=== PATIENT | male | born 1950 | race Caucasian/White ===

== ENCOUNTER 2018-07-16 13:20 | Emergency (ER) | payer MEDICARE, OTHER ==
[~2018-07-16] VITALS: Ht 182.8 cm; Wt 90.7 kg
[~2018-07-16 13:20] MED LIST: ALLEGRA180 MG; PHENERGAN W/DM120 ML PO; PREDNISONE20 MG PO; SINGULAIR10 MG; VIBRAMYCIN100 MG PO
[2018-07-16] MEDS ORDERED: PREDNISONE50 MG PO (14:52)
[2018-07-16] MEDS ORDERED: AVPAK AZITHROM250 MG PO (14:52)
[2018-07-16] MEDS ORDERED: ROBITUSSIN DM 101 OZ PO (14:52)
== END 2018-07-16 15:17 | disposition home or self-care (01) ==
LOC: ED 13:20
DX: J20.9 Acute bronchitis, unspecified (principal); I10 Essential (primary) hypertension; Z88.0 Allergy status to penicillin; Z87.891 Personal history of nicotine dependence

== ENCOUNTER 2018-11-29 02:58 | Emergency (ER) | payer MEDICARE, OTHER ==
[~2018-11-29] VITALS: Ht 182.8 cm; Wt 90.7 kg
[~2018-11-29 02:58] MED LIST changes: +AVPAK AZITHROM250 MG PO; +PREDNISONE50 MG PO; +ROBITUSSIN DM 101 OZ PO
[2018-11-29] MEDS ORDERED: ROBITUSSIN5 ML PO (04:16)
[2018-11-29] MEDS ORDERED: TESSALON PERLE100 MG PO (04:16)
== END 2018-11-29 05:02 | disposition home or self-care (01) ==
LOC: ED 02:58
DX: R05 Cough (principal); R09.81 Nasal congestion; R06.2 Wheezing; Z88.0 Allergy status to penicillin; Z79.899 Other long term (current) drug therapy

== ENCOUNTER → 2023-03-29 | Outpatient (CLI) | payer MEDICARE ==
[~2023-03-29] MED LIST changes: +ROBITUSSIN5 ML PO; +TESSALON PERLE100 MG PO
== END | disposition home or self-care (01) ==
LOC: RESCLI 08:35
PROVIDERS: ATTEND Internal Medicine
DX: J45.909 Unspecified asthma, uncomplicated (principal); N52.9 Male erectile dysfunction, unspecified; I10 Essential (primary) hypertension; E03.9 Hypothyroidism, unspecified; Z85.46 Personal history of malignant neoplasm of prostate; Z88.0 Allergy status to penicillin; Z98.890 Other specified postprocedural states; Z79.899 Other long term (current) drug therapy

== ENCOUNTER → 2025-06-06 | Outpatient (CLI) | payer MEDICARE | END | disposition home or self-care (01) | LOC: US 03:27 | PROVIDERS: ATTEND Family Medicine | DX: R31.9 Hematuria, unspecified (principal) ==